=== PATIENT | female | born 1985 | race Caucasian/White ===

== ENCOUNTER 2018-08-05 17:34 | Emergency (ER) | payer OTHER, MEDICAID ==
[~2018-08-05] VITALS: Ht 162.6 cm; Wt 81.7 kg
[~2018-08-05 17:34] MED LIST: FLEXERIL PO; NORCO 5-325 TA1 EACH PO; OCELLA TABLET1 EACH PO; PROVENTIL HFA6.7 G1 INH
[2018-08-05 17:50] LABS: URINE BILIRUBIN NEGATIVE (Negative); URINE BLOOD NEGATIVE (Negative); URINE CLARITY CLEAR; URINE COLOR YELLOW; URINE GLUCOSE-RANDOM NEGATIVE (Negative); URINE KETONES NEGATIVE (Negative); URINE LEUKOCYTES-REFLEX NEGATIVE (Negative); URINE NITRITE-REFLEX NEGATIVE (Negative); URINE PROTEIN NEGATIVE (Negative); URINE UROBILINOGEN 0.2 E.U./dl (0.2-1.0)
[2018-08-05] MEDS ORDERED: VENTOLIN HFA 1818 GM INH (17:53)
[2018-08-05 18:18] LABS: ABSOLUTE EOSINOPHILS 0.1 thou/uL (0.0-0.7); ABSOLUTE LYMPHOCYTES 3.4 thou/uL (0.8-5.3); ABSOLUTE MONOCYTES 0.7 thou/uL (0.0-1.2); ABSOLUTE NEUTROPHILS 5.2 thou/uL (1.6-8.1); BASOPHILS 0.5 %; EOSINOPHILS 1.1 %; HEMATOCRIT 45.6 % (37.0-47.0); HEMOGLOBIN 15.3 gm/dL (12.0-15.0); LYMPHOCYTES 35.7 %; MCH 31.8 pg (26.0-34.0); MCHC 33.7 g/dL (28.0-37.0); MCV 94.4 fL (80.0-100.0); MONOCYTES 7.3 %; MPV 8.4 fl. (7.2-11.1); NUCLEATED RBCS 0 /100WBC; PLATELET COUNT* 286 thou/uL (150-400); POLYS 55.4 %; RBC 4.82 mil/uL (4.20-5.00); RDW-CV 13.2 % (10.5-14.5); WBC 9.4 thou/uL (4.0-11.0)
[2018-08-05 18:25] LABS: ANION GAP 7 mmol/L (7-16); BUN 9 mg/dL (7-18); CALCIUM 8.1 mg/dL (8.5-10.1); CHLORIDE 105 mmol/L (98-107); CO2 29 mmol/L (21-32); CREATININE 0.8 mg/dL (0.6-1.3); GLUCOSE 116 mg/dL (70-99); POTASSIUM 3.7 mmol/L (3.5-5.1); SODIUM 141 mmol/L (136-145)
[2018-08-05 18:28] LABS: APTT 27.5 Seconds (25.0-31.3); INR 0.9; PROTIME 9.6 Seconds (9.20-11.50)
[2018-08-05 18:31] LABS: ALBUMIN 2.7 g/dL (3.4-5.0); ALKALINE PHOSPHATASE 58 U/L (46-116); LIPASE 174 U/L (73-393); SGOT 16 U/L (15-37); SGPT 20 U/L (30-65); TOTAL BILIRUBIN 0.2 mg/dL (<0.1-1.0); TOTAL PROTEIN 5.9 g/dL (6.4-8.2); TROPONIN-I LEVEL <0.06 ng/mL (<0.06)
[2018-08-05] MEDS ORDERED: REGLAN 10 MG TA10 MG PO (19:23)
[2018-08-05] MEDS ORDERED: TRAMADOL 50 MG50 MG PO (19:23)
[2018-08-05 19:35] VITALS: BP 110/78
--- NOTE | 2018-08-06 11:01 | EKG ---
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
== END 2018-08-05 19:35 | disposition home or self-care (01) ==
LOC: M.ERS 17:34
PROVIDERS: Nurse Practitioner Family
DX: K80.50 Calculus of bile duct without cholangitis or cholecystitis without obstruction (principal); Z90.49 Acquired absence of other specified parts of digestive tract

== ENCOUNTER 2021-01-18 03:00 | Emergency (ER) | payer OTHER ==
[~2021-01-18] VITALS: Ht 162.6 cm; Wt 84.8 kg
[~2021-01-18 03:00] MED LIST changes: +REGLAN 10 MG TA10 MG PO; +TRAMADOL 50 MG50 MG PO; +VENTOLIN HFA 1818 GM INH
[2021-01-18] MEDS ORDERED: BIRTH CONTROL PILL (03:21)
[2021-01-18 04:21] LABS: ABSOLUTE LYMPHOCYTES 2.6 thou/uL (0.8-5.3); ABSOLUTE MONOCYTES 0.6 thou/uL (0.0-1.2); ABSOLUTE NEUTROPHILS 5.3 thou/uL (1.6-8.1); BASOPHILS 0.5 %; EOSINOPHILS 0.6 %; HEMATOCRIT 38.7 % (37.0-47.0); HEMOGLOBIN 13.1 gm/dL (12.0-15.0); LYMPHOCYTES 30.6 %; MCH 31.5 pg (26.0-34.0); MCHC 33.9 g/dL (28.0-37.0); MCV 92.9 fL (80.0-100.0); MONOCYTES 6.6 %; MPV 8.3 fl. (7.2-11.1); NUCLEATED RBCS 0 /100WBC; PLATELET COUNT* 270 thou/uL (150-400); POLYS 61.7 %; RBC 4.17 mil/uL (4.20-5.00); RDW-CV 12.9 % (10.5-14.5); WBC 8.5 thou/uL (4.0-11.0)
[2021-01-18 04:32] LABS: CALCIUM 8.5 mg/dL (8.5-10.1); CREATININE 0.9 mg/dL (0.6-1.3); POTASSIUM 3.3 mmol/L (3.5-5.1)
[2021-01-18 04:36] LABS: ALBUMIN 3.5 g/dL (3.4-5.0); TOTAL BILIRUBIN 0.1 mg/dL (<0.1-1.0); TOTAL PROTEIN 7.3 g/dL (6.4-8.2)
[2021-01-18] MEDS ORDERED: ZOFRAN ODT4 MG PO (05:43)
[2021-01-18 05:58] VITALS: BP 114/91
--- NOTE | 2021-01-19 13:47 | EKG ---
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 01/19/21 1347 0334 0334 Claus Vigil MD, [facility] /EPI
== END 2021-01-18 05:58 | disposition home or self-care (01) ==
LOC: M.ERS 03:00
PROVIDERS: Personal Emergency Response Attendant
DX: R10.13 Epigastric pain (principal); F10.129 Alcohol abuse with intoxication, unspecified; Y90.6 Blood alcohol level of 120-199 mg/100 ml; Z90.49 Acquired absence of other specified parts of digestive tract